=== PATIENT | male | born 1955 | race Caucasian/White ===

== ENCOUNTER 2021-04-03 09:26 | Emergency (ER) | payer BC ==
[2021-04-03] MEDS ORDERED: Benzonatate 100 MG CAP ONE (10:26)
[2021-04-03 11:03] LABS: #Monocytes 0.5 10x3/uL (0.0-1.1); %Basophils 0.4 % (0.0-2.0); %Eosinophils 0.1 % (0.0-6.0); %Lymphocytes 13.5 % (18.0-47.0); %Monocytes 6.7 % (0.0-10.0); %Neutrophils 77.9 % (40.0-75.0); Hemoglobin 11.7 g/dL (13.5-17.5); Mean Corpuscular HGB CONC 35.3 g/dL (32.0-36.0); Mean Corpuscular Hemoglobin 31.2 pg (27.0-33.0); Mean Corpuscular Volume 88.3 fl (81.2-95.1); Mean Platelet Volume 8.7 fl (7.4-10.4); Platelet Count 145 10x3/uL (150-450); RBC Distribution Width 14.1 % (11.5-14.5); Red Blood Cell (RBC) Count 3.75 10x6/uL (4.32-5.72); White Blood Cell (WBC) Count 7.7 10x3/uL (3.5-10.5)
[2021-04-03 11:08] LABS: ALT (SGPT) 54 U/L (8-55); AST (SGOT) 23 U/L (5-34); Albumin 3.7 g/dL (3.4-4.8); Alkaline Phosphatase 93 U/L (40-110); Anion Gap 14 mmol/L (10-20); BUN (Urea Nitrogen) 9 mg/dL (8.4-25.7); Calc. Creatinine Clearance 0 mL/min (70-130); Calcium 8.7 mg/dL (7.8-10.44); Carbon Dioxide 25 mmol/L (23-31); Chloride 93 mmol/L (98-107); Glucose 107 mg/dL (80-115); Potassium 4.3 mmol/L (3.5-5.1); Protein, Total 6.7 g/dL (5.8-8.1); Sodium 128 mmol/L (136-145)
[2021-04-03] MEDS ORDERED: methylPREDNISolone Sod Succ/PF 125 MG/2 ML VIAL ONE (12:50)
== END 2021-04-03 13:10 | disposition home or self-care (01) ==
LOC: CSHERS 09:26
DX: J18.9 Pneumonia, unspecified organism (principal); C34.90 Malignant neoplasm of unspecified part of unspecified bronchus or lung; Z87.891 Personal history of nicotine dependence; Z86.73 Personal history of transient ischemic attack (TIA), and cerebral infarction without residual deficits
CPT/HCPCS: 71275; 80053; 85025; 96374; J2930

== ENCOUNTER 2023-08-25 | Outpatient (CLI) | payer MEDICARE | END 2023-08-25 09:24 | disposition home or self-care (01) | DX: C79.31 Secondary malignant neoplasm of brain (principal); I63.89 Other cerebral infarction ==

== ENCOUNTER 2023-08-25 10:50 | Emergency (ER) | payer MEDICARE ==
[2023-08-25 11:17] LABS: #Eosinphils 0.1 10x3/uL (0.0-0.5); #Monocytes 0.6 10x3/uL (0.0-1.1); %Basophils 0.5 % (0.0-2.0); %Eosinophils 1.2 % (0.0-6.0); %Lymphocytes 37.1 % (18.0-47.0); %Monocytes 10.6 % (0.0-10.0); %Neutrophils 50.3 % (40.0-75.0); Hemoglobin 10.6 g/dL (13.5-17.5); Mean Corpuscular HGB CONC 33.1 g/dL (32.0-36.0); Mean Corpuscular Hemoglobin 29.2 pg (27.0-33.0); Mean Corpuscular Volume 88.2 fl (81.2-95.1); Mean Platelet Volume 8.9 fl (7.4-10.4); Platelet Count 267 10x3/uL (150-450); RBC Distribution Width 12.9 % (11.5-14.5); Red Blood Cell (RBC) Count 3.63 10x6/uL (4.32-5.72)
[2023-08-25 11:32] LABS: ALT (SGPT) 13 U/L (8-55); AST (SGOT) 15 U/L (5-34); Alkaline Phosphatase 52 U/L (40-110); Anion Gap 14 mmol/L (10-20); BUN (Urea Nitrogen) 8 mg/dL (8.4-25.7); Bilirubin, Total 0.4 mg/dL (0.2-1.2); Calc. Creatinine Clearance 0 mL/min (70-130); Carbon Dioxide 21 mmol/L (23-31); Chloride 105 mmol/L (98-107); Estimated GFR 99; Globulin 2.1 g/dL (2.4-3.5); Glucose 86 mg/dL (80-115); Potassium 4.7 mmol/L (3.5-5.1); Protein, Total 6.1 g/dL (5.8-8.1); Sodium 135 mmol/L (136-145)
[2023-08-25 11:33] LABS: INR-International Normal Ratio 1.1; PTT 28.3 sec (22.0-33.0); Prothrombin Time 11.4 sec (9.5-12.1)
[2023-08-25 11:36] LABS: Troponin I Less than 0.010 ng/mL (< 0.028)
[2023-08-25] MEDS ORDERED: Ondansetron PF 4 MG/2 ML Vial IVP PRN (12:37)
[2023-08-25] MEDS ORDERED: Acetaminophen 325 MG TAB PO PRN (12:37)
[2023-08-25] MEDS ORDERED: Sodium Chloride 0.9% 1,000 ML IV SCH (12:37)
[2023-08-25] MEDS ORDERED: Ondansetron ODT 4 MG TAB SL PRN (12:37)
[2023-08-25] MEDS ORDERED: Aspirin 300 MG Suppository ONE (13:06)
== END 2023-08-25 16:01 | disposition short-term general hospital (02) ==
LOC: CSHERS 10:50
DX: I63.9 Cerebral infarction, unspecified (principal)
CPT/HCPCS: 36415; 71045; 80053; 84484; 85025; 85610; 85730; 93005